=== PATIENT | male | born 1950 | race African-American/Black ===

== ENCOUNTER 2020-02-16 15:23 | Inpatient (IN) | payer OTHER ==
[~2020-02-16] VITALS: Ht 177.8 cm; Wt 74.8 kg
[2020-02-16 15:23] VITALS: BP 191/93
[~2020-02-16 15:23] MED LIST: GERITOL PO; NOHOMEMEDICATIONS
[2020-02-16 16:42] LABS: ABSOLUTE NEUTROPHILS 10.7 thou/uL (1.4-8.2); BASOPHILS 0.5 % (0.0-2.0); EOSINOPHILS 0.9 % (0.0-3.0); HEMATOCRIT 45.4 % (42.0-52.0); HEMOGLOBIN 15.3 gm/dL (14.0-18.0); MCH 30.9 pg (26.0-34.0); MCHC 33.6 g/dL (28.0-37.0); MONOCYTES 6.9 % (1.0-8.0); POLYS 78.7 % (36.0-66.0); RBC 4.94 mil/uL (4.50-6.00); RDW 14.1 % (10.5-14.5); WBC 13.6 thou/uL (4.0-11.0)
[2020-02-16 16:53] LABS: ANION GAP 9 mmol/L (7-16); BUN 15 mg/dL (7-18); CHLORIDE 103 mmol/L (98-107); CO2 27 mmol/L (21-32); CREATININE 1.2 mg/dL (0.7-1.3); GLUCOSE 108 mg/dL (74-106); POTASSIUM 4.3 mmol/L (3.5-5.1); SODIUM 139 mmol/L (136-145)
[2020-02-16 16:59] LABS: DIRECT BILIRUBIN < 0.1 mg/dL (<0.1-0.2); LIPASE 92 U/L (73-393); SGOT 18 U/L (15-37); SGPT 15 U/L (30-65); TOTAL BILIRUBIN 0.3 mg/dL (0.2-1.0); TOTAL PROTEIN 7.6 g/dL (6.4-8.2)
[2020-02-16 17:04] LABS: LARGE PLATELETS OCCASIONAL; PLATELET COUNT 206 thou/uL (150-400)
[2020-02-16] MEDS ORDERED: HYDROCHLOROTHIA25 M2 PO (18:58)
[2020-02-16] MEDS ORDERED: DOXYCYCLINE 10100 MG PO (20:24)
[2020-02-17 02:25] LABS: URINE BILIRUBIN NEGATIVE (Negative); URINE BLOOD TRACE (Negative); URINE CLARITY CLEAR; URINE COLOR YELLOW; URINE GLUCOSE-RANDOM* NEGATIVE (Negative); URINE KETONES TRACE (Negative); URINE LEUKOCYTES-REFLEX NEGATIVE (Negative); URINE NITRITE-REFLEX NEGATIVE (Negative); URINE PROTEIN (DIPSTICK) NEGATIVE (Negative); URINE SPECIFIC GRAVITY 1.015 (1.005-1.035); URINE UROBILINOGEN 0.2 E.U./dl (0.2-1.0)
[2020-02-17 05:54] LABS: CALCIUM 8.4 mg/dL (8.5-10.1); MAGNESIUM 1.6 mg/dL (1.8-2.4); POTASSIUM 3.6 mmol/L (3.5-5.1)
[2020-02-17 06:09] LABS: HEMATOCRIT 45.1 % (42.0-52.0); MCH 30.9 pg (26.0-34.0); MCHC 33.3 g/dL (28.0-37.0); MCV 92.8 fL (80.0-100.0); RBC 4.86 mil/uL (4.50-6.00); RDW 14.3 % (10.5-14.5); WBC 11.1 thou/uL (4.0-11.0)
[2020-02-17 06:43] VITALS: BP 151/80
[2020-02-17 06:46] VITALS: BP 152/74
[2020-02-17 07:00] VITALS: BP 152/76
[2020-02-17 14:50] VITALS: BP 149/72
--- NOTE | 2020-02-17 16:45 | NUR ---
Consult rec'd to initiate acute inpt tx to [facility] for possible onc surgery (Dr. Muir) as pt is newly dx sarcoma. Imaging uploaded to the cloud. Referral called and faxed facesheet and ins card to the transfer RN at [facility] [phone] and fax [phone]. [employer] form and cobra transfer form on chart should the pt be accepted. Lab Engineer spoke with the pt and his Lashell regarding possible transfer. They are agreeable. Chart copy requested per the unit sec. Awaiting feedback from [facility] team.
--- NOTE | 2020-02-17 17:23 | NUR ---
SIXTY [age] YEAR OLD MALE ADMITTED TO [address] [place] [address] ROOM 446 UNDER THE CARE OF DR. BARNETT. PT WAS BROUGHT INTO THE ER PER AFTER PT NOTICED A MASS ON HIS LEFT LEG. PT ALERT AND ORIENTED TIMES FOUR. VSS, IVF INFUSING PER ORDER. PT DENIES PAIN/SOA. PT AT BEDSIDE
[2020-02-17 21:45] VITALS: BP 140/71
--- NOTE | 2020-02-18 02:49 | NUR ---
PT IS ALERT AND ORIENTED. HE IS UP AD LAURA IN ROOM. USING A URINAL, KNOWS TO CALL IF NEEDS TO WALK TO THE BATHROOM.VSS.CALL LIGHT WITHIN REACH,WILL CONTINUE WITH POC.
[2020-02-18 03:58] VITALS: BP 143/85
[2020-02-18 05:56] LABS: HEMATOCRIT 43.8 % (42.0-52.0); HEMOGLOBIN 14.5 gm/dL (14.0-18.0); MCHC 33.1 g/dL (28.0-37.0); MCV 93.7 fL (80.0-100.0); RBC 4.68 mil/uL (4.50-6.00); RDW 14.2 % (10.5-14.5); WBC 9.5 thou/uL (4.0-11.0)
[2020-02-18 06:10] LABS: CALCIUM 8.7 mg/dL (8.5-10.1); CREATININE 1.1 mg/dL (0.7-1.3); POTASSIUM 3.8 mmol/L (3.5-5.1)
[2020-02-18 07:33] VITALS: BP 144/83
[2020-02-18 09:54] VITALS: BP 144/83
--- NOTE | 2020-02-18 10:15 | NUR ---
[facility] transfer request for Dr. Jennifer Hardy-onc surgeon was cancelled as she is on vacation. She was reached by the transfer team and recommended the pt make an appt with her office. [facility] has faxed a referral recommendation with her office info for the pt to make an appt. Nursing to call radiology and get a disc of imaging and reports to send home with the pt for f/u appt. Pt and his aware they need to make an appt with Dr. Hardy for as soon as possible. No other cm interventions indicated at this time. Pt is dcing home today.
--- NOTE | 2020-02-18 10:34 | NUR ---
Assumed care of pt. at 0700. Pt. is calm and cooperative and is hoping to go home today. Received discharge orders on pt. and gave education and all necessary info to the pt. IV was removed and all belongings returned to pt.
== END 2020-02-18 11:38 | disposition home or self-care (01) | DRG 543 ==
LOC: ER 15:23 → EROBS 19:44 → 4S 19:44
PROVIDERS: Nurse Practitioner; Nurse Practitioner Family; ADMIT Hospitalist; ATTEND Hospitalist
DX: C49.21 Malignant neoplasm of connective and soft tissue of right lower limb, including hip (principal); R65.10 Systemic inflammatory response syndrome (SIRS) of non-infectious origin without acute organ dysfunction; I10 Essential (primary) hypertension; F32.9 Major depressive disorder, single episode, unspecified; F41.9 Anxiety disorder, unspecified; Z79.899 Other long term (current) drug therapy; E78.5 Hyperlipidemia, unspecified; Z83.3 Family history of diabetes mellitus; Z82.49 Family history of ischemic heart disease and other diseases of the circulatory system; Z80.1 Family history of malignant neoplasm of trachea, bronchus and lung
CPT/HCPCS: 10195